=== PATIENT | male | born 1950 | race Caucasian/White ===

== ENCOUNTER → 2017-07-11 | Outpatient (CLI) | payer MEDICARE, MEDICAID ==
--- NOTE | 2017-07-11 15:39 | RADIOLOGY REPORT (SQ) ---
EXAM DESCRIPTION: MRI ABDOMEN COMBO COMPLETED DATE/TIME: 07/11/2017 10:44 am REASON FOR STUDY: LIVER CELL CARCINOMA C22.0 LIVER CELL CARCINOMA COMPARISON: None. TECHNIQUE: Multiplanar multisequence imaging performed without and with contrast including sagittal, axial and coronal T2, axial T1, axial gradient fat sat T1, axial, sagittal and coronal fat sat T1 po st contrast. CONTRAST TYPE AND DOSE: 20 mL Prohance. RENAL FUNCTION: GFR > 60. LIMITATIONS: Susceptibility artifact associated with retroperitoneum with the level of the S amount FINDINGS: LIVER: 2.6 x 2.4 x 1.9 cm lesion anterior segment (VIII) right lobe heterogeneously dark o n T2 with early arterial enhancement. SPLEEN: Normal size. No focal lesions. PANCREAS: No masses. No adjacent inflammation or peripancreatic fluid collections. Pancreatic duct no t dilated. GALLBLADDER: No masses. No stones. No gallbladder wall thickening or pericholecystic fluid. ADRENAL GLANDS: No significant masses or asymmetry. RIGHT KIDNEY AND URETER: Parapelvic cysts. No solid masses. No hydronephrosis. LEFT KIDNEY AND URETER: No masses. No hydronephrosis. AORTA AND VESSELS: No aneurysm. RETROPERITONEUM: No retroperitoneal adenopathy, hemorrhage or masses. BOWEL: No visualized masses. No inflammation. No significant dilatation. ABDOMINAL WALL AND PERITONEUM: No hernias. No free fluid. BONES: No acute or significant findings. OTHER: No other significant finding. IMPRESSION: Solitary mass in the right lobe of the liver which does not meet benign criteria. TECHNICAL DOCUMENTATION: JOB ID: [id number] [employer]- All Rights Reserved
== END ==
LOC: RAD 09:03
PROVIDERS: ATTEND Physician Assistant
DX: C22.0 Liver cell carcinoma (principal)
CPT/HCPCS: 82565; 74183; A9576

== ENCOUNTER → 2018-01-21 | Outpatient (CLI) | payer MEDICARE, MEDICAID ==
--- NOTE | 2018-01-22 11:07 | RADIOLOGY REPORT (SQ) ---
EXAM DESCRIPTION: MRI ABDOMEN COMBO COMPLETED DATE/TIME: 01/21/2018 11:27 am REASON FOR STUDY: HEPATOMEGALY, NOT ELSEWHERE CLASSIFIED R16.0 HEPATOMEGALY, NOT ELSEWHERE CLASSIFI ED COMPARISON: 07/11/2017 TECHNIQUE: Multiplanar multisequence imaging performed without and with contrast including sagittal, axial and coronal T2, axial T1, axial gradient fat sat T1, axial, sagittal and coronal fat sat T1 po st contrast. CONTRAST TYPE AND DOSE: 20 mL Prohance. RENAL FUNCTION: GFR > 60. LIMITATIONS: None. FINDINGS: LIVER: Persistent mass lesion the liver which is low signal on T1 low signal on T2 new wit h immediate hypervascularity and and early washout with rim enhancement. 2.5 cm. Similar in size to previous. . SPLEEN: Normal size. No focal lesions. PANCREAS: No masses. No adjacent inflammation or peripancreatic fluid collections. Pancreatic duct no t dilated. GALLBLADDER: No masses. No stones. No gallbladder wall thickening or pericholecystic fluid. ADRENAL GLANDS: No significant masses or asymmetry. RIGHT KIDNEY AND URETER: Peripelvic cysts. No hydronephrosis. LEFT KIDNEY AND URETER: No masses. No hydronephrosis. AORTA AND VESSELS: No aneurysm. No dissection. Renal arteries, SMA, celiac without stenosis. RETROPERITONEUM: No retroperitoneal adenopathy, hemorrhage or masses. BOWEL: No visualized masses. No inflammation. No significant dilatation. ABDOMINAL WALL AND PERITONEUM: No hernias. No free fluid. BONES: No acute or significant findings. OTHER: No other significant finding. IMPRESSION: Persistent suspicious mass in the right lobe of the liver measuring 2.5 cm. No change f rom previous. TECHNICAL DOCUMENTATION: JOB ID: [id number] [employer]- All Rights Reserved Reading location - IP/workstation name: [email or web address]
== END ==
LOC: RAD 10:07
PROVIDERS: ATTEND Physician Assistant
DX: R16.0 Hepatomegaly, not elsewhere classified (principal)
CPT/HCPCS: 82565; 74183; A9576

== ENCOUNTER 2018-09-18 19:24 | Emergency (ER) | payer MEDICARE, MEDICAID ==
--- NOTE | 2018-09-18 19:48 | ER Document Report ---
ED GI/ - General Chief Complaint: Nausea/Vomiting Stated Complaint: NAUSEA/VOMITING Time Seen by Provider: 09/18/18 19:41 Mode of Arrival: Stretcher Information source: Patient TRAVEL OUTSIDE OF THE [place] IN LAST 30 DAYS: No - HPI Patient complains to provider of: Vomiting Onset: Other - 2-3 days Timing/Duration: Persistent Quality of pain: No pain Associated symptoms: Nausea, Vomiting Exacerbated by: Denies Relieved by: Denies Similar symptoms previously: No Recently seen / treated by doctor: No Notes: 09/19/18 00:15 Patient is a 68-year-old male brought to the emergency room by EMS vomiting times 2-3 days, he denies any diarrhea, no abdominal pain, no fevers, no chest pain, he denies any other symptoms at present time - Related Data Allergies/Adverse Reactions: No Known Allergies Allergy (Unverified 09/18/18 21:53) Past Medical History - General Information source: Patient - Social History Smoking Status: Unknown if Ever Smoked Family History: Reviewed & Not Pertinent Review of Systems - Review of Systems Constitutional: No symptoms reported EENT: No symptoms reported Cardiovascular: No symptoms reported Respiratory: No symptoms reported Gastrointestinal: See HPI Genitourinary: No symptoms reported Male Genitourinary: No symptoms reported Musculoskeletal: No symptoms reported Skin: No symptoms reported Hematologic/Lymphatic: No symptoms reported Neurological/Psychological: No symptoms reported -: Yes All other systems reviewed and negative Physical Exam - Vital signs Vitals: Temp Pulse Resp BP Pulse Ox 98.1 F 71 18 197/86 H 99 09/18/18 19:30 09/18/18 19:30 09/18/18 19:30 09/18/18 19:30 09/18/18 19:30 Interpretation: Normal - General General appearance: Appears well, Alert - HEENT Head: Atraumatic, Other - Mid frontal indentation from previous surgery Eyes: Normal Conjunctiva: Normal Eyelashes: Normal Pupils: PERRL Mucous membranes: Normal Pharynx: Normal Neck: Normal - Respiratory Respiratory status: No respiratory distress Chest status: Nontender Breath sounds: Normal Chest palpation: Normal - Cardiovascular Rhythm: Regular Heart sounds: Normal auscultation Murmur: No - Abdominal Inspection: Normal Distension: No distension Bowel sounds: Normal Tenderness: Nontender Organomegaly: No organomegaly - Back Back: Normal, Nontender - Extremities General upper extremity: Normal inspection, Nontender, Normal color, Normal ROM , Normal temperature General lower extremity: Normal inspection, Nontender, Normal color, Normal ROM , Normal temperature, Normal weight bearing. No: Charlotte's sign - Neurological Neuro grossly intact: Yes Cognition: Normal Orientation: AAOx4 Danyelle Coma Scale Eye Opening: Spontaneous Danyelle Coma Scale Verbal: Confused - Slight confusion when asking some questions patient given an appropriate answer on initial exam Cambria Coma Scale Motor: Obeys Commands Cambria Coma Scale Total: 14 Speech: Normal Motor strength normal: LUE, RUE, LLE, RLE Sensory: Normal - Psychological Associated symptoms: Normal affect, Normal mood - Skin Skin Temperature: Warm Skin Moisture: Dry Skin Color: Normal Course - Re-evaluation Re-evalutation: 09/19/18 00:17 patient's roommate reported to the emergency room and reports that headache, patient initially denied any symptoms of the headache to me, however since he does appear slightly confused a CT head was ordered, this shows old changes of encephalomalacia from previous surgery which patient confirms is secondary to a previous head injury, patient is also noted to have elevated blood pressure, he states that he has been off of his valsartan hand for the past few weeks because he ran out and when he attempted to refill it was told that valsartan was recalled secondary to a carcinogen that was noted in this medication, I did an Internet search and valsartan was recalled back in April secondary to a carcinogen that was found as a compounding agent from 1 of the manufactures, however valsartan is otherwise available from other manufactures, patient was given a dose of antihypertensive medication in the emergency department and had significant improvement in his blood pressure, he is eating and drinking without any difficulty and lab findings are unremarkable, therefore patient will be discharged home with a prescription for valsartan and instructions for follow-up, advised to return if any symptoms worsen, patient acknowledges understanding and agreement with this plan - Vital Signs Vital signs: Temp Pulse Resp BP Pulse Ox 98.1 F 72 17 123/70 96 09/18/18 19:30 09/18/18 19:37 09/19/18 00:01 09/19/18 00:01 09/19/18 00:01 - Laboratory Result Diagrams: 09/18/18 20:39 09/18/18 20:39 Laboratory results interpreted by me: 09/18/18 09/18/18 09/18/18 20:39 20:39 20:39 Plt Count 142 L Seg Neutrophils % 82.1 H Lymphocytes % 11.1 L Potassium 3.5 L BUN 21 H Calcium 10.4 H Ammonia < 8.7 L Urine Urobilinogen 09/18/18 21:40 Plt Count Seg Neutrophils % Lymphocytes % Potassium BUN Calcium Ammonia Urine Urobilinogen 2.0 H - Diagnostic Test Radiology reviewed: Image reviewed, Reports reviewed Discharge - Discharge Clinical Impression: Nausea and vomiting Qualifiers: Vomiting type: unspecified Vomiting Intractability: non-intractable Qualified Code(s): R11.2 - Nausea with vomiting, unspecified Condition: Stable Disposition: HOME, SELF-CARE Instructions: Antinausea Medication ([facility]), Vomiting ([facility]), High Blood Pressure , Requiring Treatment ([facility]) Additional Instructions: Follow up with your primary care provider in one to 2 days. Return to the emergency room immediately if symptoms worsen or any additional concerns. Prescriptions: Valsartan [Diovan] 160 mg PO DAILY #30 tablet Referrals: UTE SIMMS PA-C [Primary Care Provider] - Follow up as needed
[2018-09-18 20:54] LABS: ABSOLUTE BASOPHILS # (AUTO) 0.1 10^3/uL (0.0-0.2); ABSOLUTE LYMPHOCYTES (AUTO) 0.9 10^3/uL (0.5-4.7); ABSOLUTE MONOCYTES (AUTO) 0.5 10^3/uL (0.1-1.4); ABSOLUTE NEUT (AUTO) 6.8 10^3/uL (1.7-8.2); BASOPHILS % (AUTO) 0.9 % (0-2); EOSINOPHILS % (AUTO) 0.3 % (0-6); HEMATOCRIT 43.1 % (37.9-51.0); LYMPHOCYTES % (AUTO) 11.1 % (13-45); MEAN CORPUSCULAR HEMOGLOBIN 31.5 pg (27.0-33.4); MEAN CORPUSCULAR HGB CONC 34.9 g/dL (32.0-36.0); MEAN CORPUSCULAR VOLUME 90 fl (80-97); MONOCYTES % (AUTO) 5.6 % (3-13); PLATELET COUNT 142 10^3/uL (150-450); RED BLOOD COUNT 4.77 10^6/uL (4.35-5.55); RED CELL DISTRIBUTION WIDTH 13.4 % (11.5-14.0); SEGMENTED NEUTROPHILS % (AUTO) 82.1 % (42-78); TOTAL CELLS COUNTED % (AUTO) 100 %; WHITE BLOOD COUNT 8.3 10^3/uL (4.0-10.5)
[2018-09-18] MEDS ORDERED: METOPROLOL TARTRATE PF/INJ 5 MG/5 ML SDV IV ONE (21:49)
[2018-09-18 21:57] LABS: APPEARANCE,URINE CLEAR; BILIRUBIN,URINE NEGATIVE (NEGATIVE); COLOR,URINE YELLOW; GLUCOSE, URINE NEGATIVE (NEGATIVE); KETONES,URINE NEGATIVE (NEGATIVE); LEUKOCYTE ESTERASE,URINE NEGATIVE (NEGATIVE); NITRITE,URINE NEGATIVE (NEGATIVE); PROTEIN,URINE NEGATIVE (NEGATIVE); URINE SPECIFIC GRAVITY 1.012
[2018-09-18 22:07] LABS: ALANINE AMINOTRANSFERASE 21 U/L (21-72); ALBUMIN 4.2 g/dL (3.5-5.0); ALKALINE PHOSPHATASE 71 U/L (38-126); ANION GAP 14 (5-19); ASPARTATE AMINO TRANSFERASE 37 U/L (17-59); BILIRUBIN,DIRECT 0.3 mg/dL (0.0-0.4); BILIRUBIN,TOTAL 0.6 mg/dL (0.2-1.3); BLOOD UREA NITROGEN 21 mg/dL (7-20); CALCIUM 10.4 mg/dL (8.4-10.2); CARBON DIOXIDE 30 mmol/L (22-30); CHLORIDE 98 mmol/L (98-107); GLUCOSE 101 mg/dL (75-110); LIPASE 67.4 U/L (23-300); POTASSIUM 3.5 mmol/L (3.6-5.0); SODIUM 141.5 mmol/L (137-145); TOTAL PROTEIN 7.1 g/dL (6.3-8.2)
--- NOTE | 2018-09-18 22:46 | RADIOLOGY REPORT (SQ) ---
EXAM DESCRIPTION: CT HEAD WITHOUT IV CONTRAST COMPLETED DATE/TME: 09/18/2018 21:49 CLINICAL HISTORY: 68 years, Male, ams COMPARISON: None. TECHNIQUE: 201 Images stored on PACS. All CT scanners at this facility use dose modulation, iterative reconstruction, and/or weight based dosing when appropriate to reduce radiation dose to as low as reasonably achievable (ALARA). [facility]: Dose Right [facility]: CareDose [facility]: Dose Right [facility]: Teradose 4D [facility]: Pairy LIMITATIONS: None. FINDINGS: The globes are intact. The paranasal sinuses and mastoid air cells are unremarkable. No displaced or depressed skull fracture. Craniotomy defect in the bifrontal regions. Deformity of the frontal bone near the midline with internal soft tissue density which possibly communicates with the adjacent right frontal sinus could be postoperative however correlation with any prior exams is recommended. Negative for intra or extra-axial hemorrhage. CT is limited for evaluation of acute infarct. No CT evidence for large or territorial acute infarct. Diffuse atrophy. Diminished attenuation in the left frontal region which likely relates to postoperative changes with underlying encephalomalacia.. IMPRESSION: Postsurgical changes, as above. Correlation with any prior/outside exams is recommended. What is likely an area of postoperative change/encephalomalacia in the left frontal region. Mild diffuse atrophy. TECHNICAL DOCUMENTATION: Quality ID # [id number]: Final reports with documentation of one or more dose reduction techniques (e.g., Automated exposure control, adjustment of the mA and/or kV according to patient size, use of iterative reconstruction technique) 2010 [employer]- All Rights Reserved
[2018-09-18] MEDS ORDERED: CLONIDINE HCL 0.2 MG TABLET PO ONE (22:53)
[2018-09-19 00:08] VITALS: BP 123/70
== END 2018-09-19 00:27 | disposition home or self-care (01) ==
LOC: ER 19:24
DX: R11.2 Nausea with vomiting, unspecified (principal); I10 Essential (primary) hypertension; T46.5X6A Underdosing of other antihypertensive drugs, initial encounter; Z91.128 Patient's intentional underdosing of medication regimen for other reason; Z91.14 Patient's other noncompliance with medication regimen; R51 Headache; G93.89 Other specified disorders of brain
CPT/HCPCS: 99284; 96374; 36415; 87086; 82140; 83690; 85025; 80053; 81001; 70450; A9270; J3490

== ENCOUNTER 2019-08-07 11:39 | Outpatient (CLI) | payer MEDICARE, MEDICAID ==
[~2019-08-07 11:39] MED LIST: NIVOLUMAB 240 MG in NORMAL SALINE 50 ML IV PRN; NORMAL SALINE 250 ML IV PRN; ZOLEDRONIC ACID 4 MG/100 ML RTU IV PRN
[2019-08-07 12:02] VITALS: BP 156/70
[2019-08-07] MEDS ORDERED: ZOLEDRONIC ACID IV PRN (12:41)
[2019-08-07] MEDS ORDERED: MANNITOL IV PRN (12:41)
[2019-08-07] MEDS ORDERED: WATER IV PRN (12:41)
== END 2019-08-07 13:47 | disposition home or self-care (01) ==
LOC: II 11:39 → 5TH 12:11 → II 13:47
PROVIDERS: ATTEND Internal Medicine Hematology & Oncology
PROC: 3E0330M Introduction of Antineoplastic, Monoclonal Antibody, into Peripheral Vein, Percutaneous Approach (ICD-10-PCS; principal; 2019-08-07)
PROC: 3E033GC Introduction of Other Therapeutic Substance into Peripheral Vein, Percutaneous Approach (ICD-10-PCS; 2019-08-07)
DX: Z51.11 Encounter for antineoplastic chemotherapy (principal); C22.0 Liver cell carcinoma
CPT/HCPCS: 96413; 96367; J3489; J9299

== ENCOUNTER 2019-08-21 10:15 | Outpatient (CLI) | payer MEDICARE, MEDICAID ==
[~2019-08-21 10:15] MED LIST changes: -ZOLEDRONIC ACID 4 MG/100 ML RTU IV PRN
[2019-08-21 10:40] VITALS: BP 139/76
== END 2019-08-21 11:41 | disposition home or self-care (01) ==
LOC: II 10:15 → 5TH 11:06 → II 11:41
PROVIDERS: ATTEND Internal Medicine Hematology & Oncology
PROC: 3E0330M Introduction of Antineoplastic, Monoclonal Antibody, into Peripheral Vein, Percutaneous Approach (ICD-10-PCS; principal; 2019-08-21)
DX: Z51.11 Encounter for antineoplastic chemotherapy (principal); C22.0 Liver cell carcinoma
CPT/HCPCS: 96413; J9299

== ENCOUNTER 2019-09-04 14:31 | Outpatient (CLI) | payer MEDICARE, MEDICAID ==
[~2019-09-04 14:31] MED LIST changes: +ZOLEDRONIC ACID/MANNITOL/WATER 4 MG/100 ML INFUS..BTL IV PRN
[2019-09-04 14:55] VITALS: BP 146/78
== END 2019-09-04 15:45 | disposition home or self-care (01) ==
LOC: II 14:31 → 5TH 14:31 → II 15:45
PROVIDERS: ATTEND Internal Medicine Hematology & Oncology
PROC: 3E0330M Introduction of Antineoplastic, Monoclonal Antibody, into Peripheral Vein, Percutaneous Approach (ICD-10-PCS; principal; 2019-09-04)
PROC: 3E033GC Introduction of Other Therapeutic Substance into Peripheral Vein, Percutaneous Approach (ICD-10-PCS; 2019-09-04)
DX: Z51.11 Encounter for antineoplastic chemotherapy (principal); C22.0 Liver cell carcinoma; Z79.51 Long term (current) use of inhaled steroids
CPT/HCPCS: 96413; 96367; J3489; J9299

== ENCOUNTER → 2019-09-04 | Outpatient (CLI) | payer MEDICARE, MEDICAID ==
--- NOTE | 2019-09-04 12:27 | RADIOLOGY REPORT (SQ) ---
EXAM DESCRIPTION: NM WHOLE BODY BONE SCAN COMPLETED DATE/TIME: 09/04/2019 12:05 pm REASON FOR STUDY: LIVER CELL CARCINOMA C22.0 LIVER CELL CARCINOMA COMPARISON: No available imaging studies for comparison. RADIONUCLIDE AND DOSE: 21.5 millicuries Tc99m MDP. The route of agent administration: Intravenous. ADDITIONAL DRUGS AND DOSES: None. TECHNIQUE: Routine delayed images at 3 hour post radionuclide injection acquired of the bony skeleto n including anterior and posterior whole-body projections and additional focused images as needed. LIMITATIONS: None. FINDINGS: BONES: There is uptake in a right posterior rib. This appears to be in the 9th rib. It i s focal and most likely posttraumatic. Correlation with plain films is recommended. There is less i ntense uptake in a right anterior ribs this uptake is more linear in configuration and metastatic dis ease cannot be excluded. There is increased uptake in the lumbar spine most likely degenerative christina elation with plain films is recommended. KIDNEYS: Symmetric excretion without obstruction. OTHER: No other significant finding. IMPRESSION: Areas of abnormal uptake in a right anterior rib, a right posterior ribs and at L5. The uptake in the right anterior rib is suspicious for metastatic disease correlation with plain films i s recommended. Other changes are most likely degenerative and posttraumatic. COMMENT: Quality measure 147: Current bone scan is compared with any available plain radiographs, p rior bone scans, and CT/MRI. TECHNICAL DOCUMENTATION: JOB ID: [id number]- All Rights Reserved Reading location - IP/workstation name: [email or web address]
== END ==
LOC: RAD 08:02
PROVIDERS: ATTEND Nurse Practitioner Family
DX: C22.0 Liver cell carcinoma (principal); C79.51 Secondary malignant neoplasm of bone
CPT/HCPCS: 78306; A9561; Q9969

== ENCOUNTER 2019-09-18 11:31 | Outpatient (CLI) | payer MEDICARE, MEDICAID ==
[~2019-09-18 11:31] MED LIST changes: -ZOLEDRONIC ACID/MANNITOL/WATER 4 MG/100 ML INFUS..BTL IV PRN
[2019-09-18 11:47] VITALS: BP 124/73
== END 2019-09-18 13:00 | disposition home or self-care (01) ==
LOC: II 11:31 → 5TH 11:39 → II 13:00
PROVIDERS: ATTEND Internal Medicine Hematology & Oncology
PROC: 3E0330M Introduction of Antineoplastic, Monoclonal Antibody, into Peripheral Vein, Percutaneous Approach (ICD-10-PCS; principal; 2019-09-18)
DX: Z51.11 Encounter for antineoplastic chemotherapy (principal); C22.0 Liver cell carcinoma
CPT/HCPCS: 96413; J9299

== ENCOUNTER 2019-10-02 11:48 | Outpatient (CLI) | payer MEDICARE, MEDICAID ==
[~2019-10-02 11:48] MED LIST changes: +MANNITOL IV PRN; +ZOLEDRONIC ACID IV PRN; +[UNRECOGNIZED DRUG - OTHER] IV PRN
[2019-10-02 13:52] VITALS: BP 108/73
== END 2019-10-02 13:20 | disposition home or self-care (01) ==
LOC: II 11:48 → 5TH 12:05 → II 13:20
PROVIDERS: ATTEND Internal Medicine Hematology & Oncology
DX: Z51.11 Encounter for antineoplastic chemotherapy (principal); C22.0 Liver cell carcinoma
CPT/HCPCS: 96413; 96367; J3489; J9299

== ENCOUNTER 2019-10-23 11:05 | Outpatient (CLI) | payer MEDICARE, MEDICAID ==
[~2019-10-23 11:05] MED LIST changes: -MANNITOL IV PRN; -ZOLEDRONIC ACID IV PRN; -[UNRECOGNIZED DRUG - OTHER] IV PRN
[2019-10-23 11:50] VITALS: BP 135/68
== END 2019-10-23 12:43 | disposition home or self-care (01) ==
LOC: II 11:05 → 5TH 11:07 → II 12:43
PROVIDERS: ATTEND Internal Medicine Hematology & Oncology
DX: Z51.11 Encounter for antineoplastic chemotherapy (principal); C22.0 Liver cell carcinoma
CPT/HCPCS: 96413; J9299

== ENCOUNTER 2019-11-06 12:23 | Outpatient (CLI) | payer MEDICARE, MEDICAID ==
[~2019-11-06 12:23] MED LIST changes: +MANNITOL IV PRN; +WATER IV PRN; +ZOLEDRONIC ACID 4 MG/100 ML RTU IV PRN; +ZOLEDRONIC ACID IV PRN
[2019-11-06 12:34] VITALS: BP 130/74
== END 2019-11-06 14:54 | disposition home or self-care (01) ==
LOC: II 12:23 → 5TH 12:29 → II 14:54
PROVIDERS: ATTEND Internal Medicine Hematology & Oncology
DX: Z51.11 Encounter for antineoplastic chemotherapy (principal); C22.0 Liver cell carcinoma
CPT/HCPCS: 96413; 96367; J3489; J9299

== ENCOUNTER → 2019-12-25 | Outpatient (CLI) | payer MEDICARE, MEDICAID ==
--- NOTE | 2019-12-25 13:14 | RADIOLOGY REPORT (SQ) ---
EXAM DESCRIPTION: NM WHOLE BODY BONE SCAN COMPLETED DATE/TIME: 12/25/2019 12:08 pm REASON FOR STUDY: LIVER CELL CARCINOMA (C22.0), BONE METS (C79.51) C22.0 LIVER CELL CARCINOMA COMPARISON: 09/04/2019 RADIONUCLIDE AND DOSE: 20 millicuries Tc99m HDP. The route of agent administration: Intravenous. ADDITIONAL DRUGS AND DOSES: None. TECHNIQUE: Routine delayed images at 3 hours post radionuclide injection acquired of the bony skelet on including anterior and posterior whole-body projections and additional focused images as needed. LIMITATIONS: None. FINDINGS: BONES: There is focal uptake in the right anterior rib. Right posterior rib, and at the l umbosacral junction. There are no new areas of abnormal uptake. KIDNEYS: Symmetric excretion without obstruction. OTHER: No other significant finding. IMPRESSION: Stable bone scan with abnormal areas of uptake as described. Cannot exclude metastatic disease. COMMENT: Quality measure 147: Current bone scan is compared with any available plain radiographs, p rior bone scans, and CT/MRI. TECHNICAL DOCUMENTATION: JOB ID: [id number] 2010 [employer]- All Rights Reserved Reading location - IP/workstation name: [email or web address]
== END ==
LOC: RAD 08:09
PROVIDERS: ATTEND Nurse Practitioner Family
DX: C22.0 Liver cell carcinoma (principal); C79.51 Secondary malignant neoplasm of bone
CPT/HCPCS: 78306; A9561; Q9969

== ENCOUNTER → 2020-04-08 | Outpatient (CLI) | payer MEDICARE, MEDICAID ==
--- NOTE | 2020-04-08 12:59 | RADIOLOGY REPORT (SQ) ---
EXAM DESCRIPTION: VENOUS UNILATERAL LOWER IMAGES COMPLETED DATE/TIME: 04/08/2020 11:48 am REASON FOR STUDY: LLE PAIN M79.662 PAIN IN LEFT LOWER LEG COMPARISON: None. TECHNIQUE: Dynamic and static vang scale and color images acquired of the left leg venous system. Se lected spectral images acquired with additional compression and augmentation maneuvers. The contralat eral common femoral vein and saphenofemoral junction were also imaged. Images stored on PACS. LIMITATIONS: None. FINDINGS: COMMON FEMORAL: Normal phasicity, compression and augmentation. No visualized echogenic ma terial on vang scale. No defects on color images. FEMORAL: Normal compression and augmentation. No visualized echogenic material on vang scale. No defe cts on color images. POPLITEAL: Normal compression, augmentation. No visualized echogenic material on vang scale. No defec ts on color images. CALF VESSELS: Normal compression, augmentation. No visualized echogenic material on vang scale. No de fects on color images. GSV and SSV: Normal compression, augmentation. No visualized echogenic material on vang scale. No def ects on color images. ANY DEEP VENOUS INSUFFICIENCY: Not evaluated. ANY EVIDENCE OF POPLITEAL CYST: No. OTHER: No other significant finding. CONTRALATERAL COMMON FEMORAL VEIN AND SAPHENOFEMORAL JUNCTION: Normal phasicity, compression and augmentation. No visualized echogenic material on vang scale. No de fects on color images. IMPRESSION: NO EVIDENCE DVT OR SVT IN THE LEFT LEG. TECHNICAL DOCUMENTATION: JOB ID: [id number] 2010 [employer]- All Rights Reserved Reading location - IP/workstation name: [email or web address]
== END ==
LOC: SP 07:55
PROVIDERS: ATTEND Physician Assistant
DX: M79.662 Pain in left lower leg (principal)
CPT/HCPCS: 93971

== ENCOUNTER 2020-04-12 10:36 | Emergency (ER) | payer MEDICARE, MEDICAID ==
[2020-04-12 11:45] LABS: ABSOLUTE BASOPHILS # (AUTO) 0.1 10^3/uL (0.0-0.2); ABSOLUTE EOSINOPHILS # (AUTO) 0.3 10^3/uL (0.0-0.6); ABSOLUTE LYMPHOCYTES (AUTO) 0.6 10^3/uL (0.5-4.7); ABSOLUTE MONOCYTES (AUTO) 0.3 10^3/uL (0.1-1.4); ABSOLUTE NEUT (AUTO) 4.7 10^3/uL (1.7-8.2); BASOPHILS % (AUTO) 2.2 % (0-2); EOSINOPHILS % (AUTO) 4.6 % (0-6); HEMATOCRIT 32.3 % (37.9-51.0); LYMPHOCYTES % (AUTO) 9.5 % (13-45); MEAN CORPUSCULAR HEMOGLOBIN 31.2 pg (27.0-33.4); MEAN CORPUSCULAR VOLUME 92 fl (80-97); MONOCYTES % (AUTO) 5.2 % (3-13); PLATELET COUNT 320 10^3/uL (150-450); RED BLOOD COUNT 3.51 10^6/uL (4.35-5.55); RED CELL DISTRIBUTION WIDTH 15.5 % (11.5-14.0); SEGMENTED NEUTROPHILS % (AUTO) 78.5 % (42-78); TOTAL CELLS COUNTED % (AUTO) 100 %
[2020-04-12 12:02] LABS: ALBUMIN 3.8 g/dL (3.5-5.0); ALKALINE PHOSPHATASE 126 U/L (38-126); ANION GAP 8 (5-19); ASPARTATE AMINO TRANSFERASE 131 U/L (17-59); BILIRUBIN,DIRECT 0.2 mg/dL (0.0-0.4); BILIRUBIN,TOTAL 0.7 mg/dL (0.2-1.3); BLOOD UREA NITROGEN 17 mg/dL (7-20); CALCIUM 9.6 mg/dL (8.4-10.2); CARBON DIOXIDE 23 mmol/L (22-30); CHLORIDE 108 mmol/L (98-107); GLUCOSE 93 mg/dL (75-110); POTASSIUM 4.4 mmol/L (3.6-5.0)
--- NOTE | 2020-04-12 13:03 | RADIOLOGY REPORT (SQ) ---
EXAM DESCRIPTION: CHEST 2 VIEWS IMAGES COMPLETED DATE/TIME: 04/12/2020 12:52 pm REASON FOR STUDY: Right-sided chest pain COMPARISON: None. EXAM PARAMETERS: NUMBER OF VIEWS: two views TECHNIQUE: Digital Frontal and Lateral radiographic views of the chest acquired. RADIATION DOSE: NA LIMITATIONS: none FINDINGS: LUNGS AND PLEURA: The lungs are hyperinflated and hyperlucent with mild flattening of the hemidiaphragm. No airspace consolidations or pleural effusions noted. No pneumothorax. MEDIASTINUM AND HILAR STRUCTURES: No masses or contour abnormalities. HEART AND VASCULAR STRUCTURES: Heart normal size. No evidence for failure. BONES: No acute findings. HARDWARE: None in the chest. OTHER: No other significant finding. IMPRESSION: Chronic findings most consistent with COPD. No acute findings of a cardiopulmonary proc ess. TECHNICAL DOCUMENTATION: JOB ID: [id number] 2010 [employer]- All Rights Reserved Reading location - IP/workstation name: [email or web address]
[2020-04-12] MEDS ORDERED: IPRATROPIUM/ALBUTEROL 0.5-2.5 MG/3 ML AMPUL NEB ONE (14:23)
[2020-04-12] MEDS ORDERED: TRAMADOL HCL 50 MG TABLET PO ONE (14:28)
--- NOTE | 2020-04-12 14:30 | ER Document Report ---
ED General - General Chief Complaint: Rib Pain Stated Complaint: FLANK PAIN Time Seen by Provider: 04/12/20 12:08 Primary Care Provider: UTE SIMMS PA-C [Primary Care Provider] - Follow up as needed Notes: 69-year-old man presents to the emergency department with a history of liver cancer and now complaining of right sided chest pain. States that he began having a severe sharp pain in his right chest this morning. The pain is worse when he takes a deep breath. He denies acute shortness of breath and no cough or fever. He has a history of COPD, peripheral vascular disease, renal insufficiency. TRAVEL OUTSIDE OF THE [place] IN LAST 30 DAYS: No - Related Data Allergies/Adverse Reactions: No Known Allergies Allergy (Unverified 09/18/18 21:53) Past Medical History - Social History Smoking Status: Current Every Day Smoker Family History: Reviewed & Not Pertinent - Past Medical History Cardiac Medical History: Reports: Hx Hypertension Renal/ Medical History: Denies: Hx Peritoneal Dialysis Review of Systems - Review of Systems Notes: Constitutional: Negative for fever. HENT: Negative for sore throat. Eyes: Negative for visual changes. Cardiovascular: Negative for chest pain. Chest: + Right rib cage pain Respiratory: Negative for shortness of breath. Gastrointestinal: Negative for abdominal pain, vomiting or diarrhea. Genitourinary: Negative for dysuria. Musculoskeletal: Negative for back pain. Skin: Negative for rash. Neurological: Negative for headaches, weakness or numbness. 10 point ROS negative except as marked above and in HPI. Physical Exam - Vital signs Vitals: Temp Pulse Resp BP Pulse Ox 98.7 F 91 20 130/64 H 94 04/12/20 11:28 04/12/20 11:28 04/12/20 11:28 04/12/20 11:28 04/12/20 11:28 - Notes Notes: PHYSICAL EXAMINATION: Physical Exam: General: Chronically ill-appearing 69-year-old man in no acute distress HEENT: NC/AT, pupils equal round and reactive to light, MM moist,nares clear, oropharynx clear, airway patent Neck: supple, no adenopathy, no masses. Good range of motion Lungs: clear, no wheezing, no rales no rhonchi CVS: Regular rate and rhythm no murmur gallop or rub Chest: Patient is in the lateral chest wall to touch, no rash, no crepitus Abdomen: Soft, active, nontender, no masses, no hepatosplenomegaly Ext: No edema, clubbing or cyanosis. Neuro: Alert and responsive, moving all 4 extremities on command, cranial nerves intact, no focal findings Skin: Intact no open lesions, no rash PSYCH: Normal mood, normal affect. Course - Vital Signs Vital signs: Temp Pulse Resp BP Pulse Ox 98.3 F 91 17 143/75 H 96 04/12/20 16:21 04/12/20 11:28 04/12/20 16:21 04/12/20 16:21 04/12/20 16:21 - Laboratory Result Diagrams: 04/12/20 10:05 04/12/20 10:05 Laboratory results interpreted by me: 04/12/20 04/12/20 04/12/20 10:05 10:05 14:18 RBC 3.51 L Hgb 11.0 L Hct 32.3 L RDW 15.5 H Lymph % (Auto) 9.5 L Baso % (Auto) 2.2 H Seg Neutrophils % 78.5 H Chloride 108 H Creatinine 2.48 H Est GFR ( Amer) 32 L Est GFR (MDRD) Non-Af 26 L AST 131 H Urine Protein 30 H Urine Blood MODERATE H - Diagnostic Test Radiology reviewed: Image reviewed, Reports reviewed Radiology results interpreted by me: 04/12/20 14:33 Chest x-ray: No acute infiltrates, findings compatible with COPD. No obvious rib fractures seen. 04/12/20 16:27 CT chest noncontrast: 2.[address] with cortical thickening noted at the ninth rib. Findings suspicious for metastatic disease. Discharge - Discharge Clinical Impression: Right-sided chest wall pain, Mass of chest wall, right Condition: Good Disposition: HOME, SELF-CARE Additional Instructions: Your seen in the emergency department today with right rib cage pain. CT scan reveals an area in the right rib cage which may represent metastatic disease. Please contact your oncologist on Tuesday regarding this area of evaluation and follow-up as per their direction. Use the medication for pain as prescribed, you may supplement Tylenol or ibupro fen as needed. If your symptoms are worsening or if you have other concerns you may return to the emergency department for further evaluation and treatment. HOME CARE INSTRUCTIONS & INFORMATION: Thank you for choosing us for your medical needs. We hope you're satisfied with the care you received. After you leave, you must properly care for your problem and, at the same time, observe its progress. Any condition can change. Some illnesses can change rapidly over hours or days. If your condition worsens, return to the Emergency Department or see your physician promptly. ABOUT YOUR X-RAYS AND EKG'S: If you had an EKG or X-rays taken, they have been read by the Emergency Physician. The X-rays and EKG's will also be read by a Radiologist or Aerial Erector within 24 hours. If discrepancies are noted, you will be notified by telephone. Please be certain the ED has a correct telephone number & address where you can be reached. Also, realize that some fractures or abnormalities do not show up on initial X-rays. If your symptoms continue, see your physician. ABOUT YOUR LABORATORY TEST: If you had laboratory tests, the results have been reviewed by the Emergency Physician. Some test results (for example cultures) may not be available for several days. You will be contacted if any test result shows you need additional treatment. Please be certain the ED has a correct telephone number and address where you can be reached. ABOUT YOUR MEDICATIONS: You will receive instructions on how to take your medicine on the prescription label you receive. Additional information may be provided by the Pharmacy. If you have questions afterwards, call the ED for clarification or further instructions. Some prescribed medications may cause drowsiness. Do not perform tasks such as driving a car or operating machinery without consulting your Pharmacist. If you feel you need a refill of pain medication, your condition will need re-evaluation. Please do not call for a refill of any medication. ABOUT YOUR SIGNATURE: Signature of this document acknowledges to followin. Understanding that you received emergency treatment and that you may be released before al medical problems are known or treated. Please be certain the ED has a correct phone number & address where you can be reached. 2. Acknowledgement that you will arrange for follow-up care as recommended. 3. Authorization for the Emergency Physician to provide information to your follow-up Physician in order to maximize your care. AT ANY TIME, IF YOUR SYMPTOMS CHANGE SIGNIFICANTLY OR WORSEN OR YOU DEVELOP NEW SYMPTOMS, RETURN TO THE EMERGENCY DEPARTMENT IMMEDIATELY FOR RE-EVALUATION. OUR GOAL IS TO PROVIDE EXCELLENT MEDICAL CARE! WE HOPE THAT WE HAVE MET YOUR EXPECTATIONS DURING YOUR EMERGENCY DEPARTMENT VISIT AND THAT YOU FEEL YOU HAVE RECEIVED EXCELLENT CARE! Prescriptions: Hydrocodone/Acetaminophen [Kn[place] 5-325 mg Tablet] 1 tab PO Q6 PRN #10 tablet PRN Reason: Referrals: UTE SIMMS PA-C [Primary Care Provider] - Follow up as needed
[2020-04-12 14:32] LABS: APPEARANCE,URINE CLEAR; BILIRUBIN,URINE NEGATIVE (NEGATIVE); COLOR,URINE STRAW; GLUCOSE, URINE NEGATIVE (NEGATIVE); KETONES,URINE NEGATIVE (NEGATIVE); LEUKOCYTE ESTERASE,URINE NEGATIVE (NEGATIVE); NITRITE,URINE NEGATIVE (NEGATIVE); PROTEIN,URINE 30 mg/dL (NEGATIVE); URINE SPECIFIC GRAVITY 1.005; UROBILINOGEN,URINE NEGATIVE mg/dL (<2.0)
--- NOTE | 2020-04-12 15:23 | RADIOLOGY REPORT (SQ) ---
EXAM DESCRIPTION: CT CHEST WITHOUT IMAGES COMPLETED DATE/TIME: 04/12/2020 3:06 pm REASON FOR STUDY: chest pain COMPARISON: None. TECHNIQUE: CT scan performed of the chest without intravenous contrast. Images reviewed with lung, soft tissue and bone windows. Reconstructed coronal and sagittal MPR images reviewed. All images st ored on PACS. All CT scanners at this facility use dose modulation, iterative reconstruction, and/or weight based d osing when appropriate to reduce radiation dose to as low as reasonably achievable (ALARA). [facility]: Dose Right [facility]: CareDose [facility]: Dose Right [facility]: Teradose 4D [facility]: Smart [employer] RADIATION DOSE: CT Rad equipment meets quality standard of care and radiation dose reduction techniq ues were employed. CTDIvol: 5.0 mGy. DLP: 198 mGy-cm. mGy. LIMITATIONS: No technical limitations. FINDINGS: LUNGS AND PLEURA: Moderate centrilobular emphysematous changes, particular within the uppe r lungs. No pleural effusions or pneumothorax. No significant pulmonary nodules or masses. HILAR AND MEDIASTINAL STRUCTURES: No identified masses or abnormal nodes. No obvious aneurysm. HEART AND VASCULAR STRUCTURES: No aneurysm. Diffuse aortic calcifications are present. Scattered co ronary artery calcifications are also present. UPPER ABDOMEN: No significant findings. Limited exam. THYROID AND OTHER SOFT TISSUES: No masses. No adenopathy. BONES: There is a subtle cortical thickening of the posterior aspect of the right 9th rib. HARDWARE: None in the chest. OTHER: 2.5 cm soft tissue density just deep to the posterior right 9th rib. This is incompletely ramakrishna luated on this exam. IMPRESSION: 1. 2.5 cm soft tissue density just deep to the posterior right 9th rib with some cortic al thickening of the rib at that location. Recommend correlation with patient's site of pain. This is incompletely evaluated on this noncontrast examination. The differential diagnosis includes heali ng trauma and associated hematoma, benign and malignant soft tissue or bone neoplasm. 2. Moderate centrilobular emphysematous changes TECHNICAL DOCUMENTATION: JOB ID: [id number] Quality ID # [id number]: Final reports with documentation of one or more dose reduction techniques (e.g., Au tomated exposure control, adjustment of the mA and/or kV according to patient size, use of iterative reconstruction technique) 2010 [employer]- All Rights Reserved Reading location - IP/workstation name: [email or web address]
[2020-04-12 16:31] VITALS: BP 143/75
== END 2020-04-12 17:02 | disposition home or self-care (01) ==
LOC: ER 10:36
DX: R07.89 Other chest pain (principal); R22.2 Localized swelling, mass and lump, trunk; R07.81 Pleurodynia; C22.8 Malignant neoplasm of liver, primary, unspecified as to type; J44.9 Chronic obstructive pulmonary disease, unspecified; F17.200 Nicotine dependence, unspecified, uncomplicated; I10 Essential (primary) hypertension
CPT/HCPCS: 94640; 99284; 36415; 83690; 85025; 80053; 81001; 71046; 71250; A9270 ×2; J7620

== ENCOUNTER 2020-04-12 22:52 | Emergency (ER) | payer MEDICARE, MEDICAID ==
[2020-04-13] MEDS ORDERED: ONDANSETRON HCL INJ/PF 4 MG/2 ML SDV IV ONE (00:01)
[2020-04-13] MEDS ORDERED: ONDANSETRON HCL INJ/PF 4 MG/2 ML SDV ONE (00:02)
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
[2020-04-13] MEDS ORDERED: LIDOCAINE 5% (700 MG) TRANSDERMAL ADH..PATCH TP ONE (00:14)
[2020-04-13] MEDS ORDERED: BUPIVACAINE HCL 0.5 % INJ/PF 30 ML SDV INJ ONE (00:19)
[2020-04-13] MEDS ORDERED: DEXAMETHASONE SOD PHOS INJ 10 MG/1 ML VIAL INJ ONE (00:22)
[2020-04-13] MEDS ORDERED: KETOROLAC TROMETHAMINE INJ/PF 30 MG/1 ML SDV IV ONE (01:21)
--- NOTE | 2020-04-13 01:26 | RADIOLOGY REPORT (SQ) ---
CLINICAL INDICATION: cough. TECHNIQUE: A single portable AP view was obtained of the chest at 0109 hours. COMPARISON: April 12, 2020. FINDINGS: The cardiomediastinal silhouette is normal. The lungs are grossly clear. No evidence of effusion or pneumothorax. Chronic parenchymal lung change. No adverse change. IMPRESSION: No evidence of active intrathoracic disease.
[2020-04-13] MEDS ORDERED: TRAMADOL HCL 50 MG TABLET PO ONE (01:41)
[2020-04-13 02:07] VITALS: BP 142/76
== END 2020-04-13 02:47 | disposition home or self-care (01) ==
LOC: ER 22:52
DX: G89.3 Neoplasm related pain (acute) (chronic) (principal); R07.81 Pleurodynia; M25.551 Pain in right hip; C79.51 Secondary malignant neoplasm of bone; C22.8 Malignant neoplasm of liver, primary, unspecified as to type; I10 Essential (primary) hypertension; R10.811 Right upper quadrant abdominal tenderness; R53.1 Weakness; R63.4 Abnormal weight loss; R56.9 Unspecified convulsions; Z79.899 Other long term (current) drug therapy; Z79.1 Long term (current) use of non-steroidal anti-inflammatories (NSAID); Z87.891 Personal history of nicotine dependence
CPT/HCPCS: 99285; 96374; 96375; 71045; J3490; J1885; A9270 ×2; J2405; J1100; 36415; 71046; 71250; 80053; 81001; 83690; 85025; 94640; 99284; J7620

== ENCOUNTER 2020-04-18 10:16 | Emergency (ER) | payer MEDICARE, MEDICAID ==
[2020-04-18] MEDS ORDERED: NORMAL SALINE 1000 ML 1,000 ML IV ONE (12:12)
[2020-04-18] MEDS ORDERED: MORPHINE SULFATE 10 MG/ML INJ IV ONE (12:12)
--- NOTE | 2020-04-18 12:14 | ER Document Report ---
ED Medical Screen (RME) - General Chief Complaint: Rib Pain Stated Complaint: RIGHT RIB PAIN Time Seen by Provider: 04/18/20 12:05 Primary Care Provider: TAMEKA DAVIS FNP-C [Primary Care Provider] - Follow up as needed Notes: Patient is a 69-year-old male who presents to the emergency department with a chief complaint of abdominal pain and right-sided rib pain. Patient has a history of liver cancer that has metastasized to his right ribs and right hip. Patient is followed by Dr. Cruz. Exam: Tender right lateral abdomen. Exam limited due to patient in sitting position in triage. I have greeted and performed a rapid initial assessment of this patient. A comprehensive ED assessment and evaluation of the patient, analysis of test results and completion of medical decision making process will be conducted by an additional ED providers. TRAVEL OUTSIDE OF THE U[place] IN LAST 30 DAYS: No - Related Data Allergies/Adverse Reactions: No Known Allergies Allergy (Unverified 09/18/18 21:53) Home Medications: levothyroxine, simvastatin, spiriva, plavix, lidocaine/morphine topical Past Medical History - Social History Frequency of alcohol use: None Drug Abuse: None - Past Medical History Cardiac Medical History: Reports: Hx Hypertension Renal/ Medical History: Denies: Hx Peritoneal Dialysis Physical Exam - Vital signs Vitals: Temp Pulse Resp BP Pulse Ox 99.0 F 105 H 24 H 149/67 H 96 04/18/20 10:32 04/18/20 10:32 04/18/20 10:32 04/18/20 10:32 04/18/20 10:32 Course - Vital Signs Vital signs: Temp Pulse Resp BP Pulse Ox 99.0 F 105 H 24 H 149/67 H 96 04/18/20 10:32 04/18/20 10:32 04/18/20 10:32 04/18/20 10:32 04/18/20 10:32 Doctor's Discharge - Discharge Referrals: TAMEKA DAVIS FNP-C [Primary Care Provider] - Follow up as needed
[2020-04-18 12:30] LABS: HEMATOCRIT 28.8 % (37.9-51.0); HEMOGLOBIN 9.8 g/dL (13.5-17.0); MEAN CORPUSCULAR HEMOGLOBIN 31.5 pg (27.0-33.4); MEAN CORPUSCULAR HGB CONC 33.9 g/dL (32.0-36.0); MEAN CORPUSCULAR VOLUME 93 fl (80-97); PLATELET COUNT 374 10^3/uL (150-450); RED BLOOD COUNT 3.11 10^6/uL (4.35-5.55); RED CELL DISTRIBUTION WIDTH 15.8 % (11.5-14.0); WHITE BLOOD COUNT 8.1 10^3/uL (4.0-10.5)
[2020-04-18 12:49] LABS: ALBUMIN 3.5 g/dL (3.5-5.0); ALKALINE PHOSPHATASE 126 U/L (38-126); ANION GAP 6 (5-19); ASPARTATE AMINO TRANSFERASE 173 U/L (17-59); BILIRUBIN,DIRECT 0.4 mg/dL (0.0-0.4); BILIRUBIN,TOTAL 1.2 mg/dL (0.2-1.3); BLOOD UREA NITROGEN 20 mg/dL (7-20); CALCIUM 9.7 mg/dL (8.4-10.2); CARBON DIOXIDE 25 mmol/L (22-30); CHLORIDE 105 mmol/L (98-107); GLUCOSE 110 mg/dL (75-110); POTASSIUM 3.9 mmol/L (3.6-5.0); TOTAL PROTEIN 6.8 g/dL (6.3-8.2)
[2020-04-18 13:05] LABS: ABSOLUTE LYMPHOCYTES# (MANUAL) 0.1 10^3/uL (0.5-4.7); ABSOLUTE MONOCYTES # (MANUAL) 0.7 10^3/uL (0.1-1.4); BASOPHILS % (MANUAL) 0 % (0-2); EOSINOPHILS % (MANUAL) 3 % (0-6); LYMPHOCYTES % (MANUAL) 1 % (13-45); MONOCYTES % (MANUAL) 9 % (3-13); SEGMENTED NEUTROPHILS % (MAN) 87 % (42-78); TOTAL CELLS COUNTED 100
[2020-04-18 13:06] LABS: ANISOCYTOSIS SLIGHT; PLATELET CLUMPS PRESENT; PLATELET COMMENT ADEQUATE; POIKILOCYTOSIS SLIGHT; TARGET CELLS SLIGHT
--- NOTE | 2020-04-18 14:13 | ER Document Report ---
ED General - General Chief Complaint: Rib Pain Stated Complaint: RIGHT RIB PAIN Time Seen by Provider: 04/18/20 12:05 Primary Care Provider: TAMEKA DAVIS FNP-C [Primary Care Provider] - Follow up as needed TRAVEL OUTSIDE OF THE [place] IN LAST 30 DAYS: No - HPI Notes: Chief complaint: Right rib pain History of present illness: 69-year-old male followed by Dr. Cruz through the oncology clinic with a history of liver cancer with rib metastases and chronic persistent lancinating pain along the right costal margin anteriorly which is aggravated by movement. Patient says several prior ED visits here for same. He states that none of the pain medicines he has been given thus far have been particularly helpful. He was supposed to have an outpatient bone scan today. He says pain was unbearable and he presents to the ER instead requesting pain management before any further imaging is done. He denies fever chills. He denies cough. He denies dyspnea. He denies nausea or vomiting. He denies dysuria. - Related Data Allergies/Adverse Reactions: No Known Allergies Allergy (Unverified 09/18/18 21:53) Home Medications: levothyroxine, simvastatin, spiriva, plavix, lidocaine/morphine topical Past Medical History - General Information source: Patient, [facility] Records - Social History Smoking Status: Current Some Day Smoker Frequency of alcohol use: None Drug Abuse: None Lives with: Family Family History: Reviewed & Not Pertinent - Past Medical History Cardiac Medical History: Reports: Hx Hypertension Renal/ Medical History: Denies: Hx Peritoneal Dialysis Malignancy Medical History: Reports Hx Liver Cancer GI Medical History: Reports: Other - History of hepatitis C Review of Systems - Review of Systems Notes: Constitutional: Negative for fever. HENT: Negative for sore throat. Eyes: Negative for visual changes. Cardiovascular: Negative for chest pain. Respiratory: Negative for shortness of breath. Gastrointestinal: Negative for abdominal pain, vomiting or diarrhea. Genitourinary: Negative for dysuria. Musculoskeletal: As per HPI. Skin: Negative for rash. Neurological: Negative for headaches, weakness or numbness. 10 point ROS negative except as marked above and in HPI. Physical Exam - Vital signs Vitals: Temp Pulse Resp BP Pulse Ox 99.0 F 105 H 24 H 149/67 H 96 04/18/20 10:32 04/18/20 10:32 04/18/20 10:32 04/18/20 10:32 04/18/20 10:32 - Notes Notes: GENERAL: Chronically ill-appearing elderly man who appears moderately uncomfortable. Overall appearance is cachectic SKIN: Pale. Good turgor no rashes. HEAD: Bitemporal wasting. Atraumatic. EYES: PERRLA. EOMI. Conjunctivae and sclerae clear. EARS: CANALS AND TMS CLEAR. NOSE: CLEAR. MOUTH: Moist mucosa. Good dentition. No stridor or edema. No drooling. NECK: Supple. No masses or thyromegaly. No adenopathy. Carotids 2+ without bruits. No JVD. BACK: Symmetrical without tenderness. CHEST: Mild tenderness along right costal margin area of anterior axillary line with no palpable crepitus or rashes in this area. Respirations unlabored. Breath sounds clear and symmetrical. HEART: Regular rhythm. No murmur gallop or rub. ABDOMEN: Soft nontender without masses, organomegaly or rebound. Bowel sounds normally active. No bruits. GENITALIA: Deferred. EXTREMITIES: No edema. No calf tenderness. Cap refill less than 1.5 seconds. Dorsalis pedis and posterior tibial pulses 3+ and symmetrical. NEUROLOGICAL: GCS 15. Alert and oriented x3. Fluent speech. Cranial nerves II through XII intact. Sensorimotor and cerebellar normal. Normal tone. PSYCHIATRIC: Appropriate affect. Course - Re-evaluation Re-evalutation: 04/18/20 15:41 Patient's labs are at his previous baseline. I think the likelihood is that his discomfort is coming either from his primary neoplasm in the right lobe of the liver or from bony metastases. He was scheduled for a bone scan today but he did not keep the appointment due to his pain and unfortunately the tracer has and the study will not be obtainable this afternoon. Patient was given morphine here IV with good relief of his discomfort. Findings were discussed with Dr. Stein from oncology. He will call in a prescription for oral morphine to the patient's pharmacy. They will arrange for follow-up in the office next week and will try to reschedule the outpatient bone scan. - Vital Signs Vital signs: Temp Pulse Resp BP Pulse Ox 99.0 F 105 H 17 164/80 H 98 04/18/20 10:32 04/18/20 10:32 04/18/20 14:00 04/18/20 13:28 04/18/20 14:00 - Laboratory Result Diagrams: 04/18/20 12:20 04/18/20 12:20 Laboratory results interpreted by me: 04/18/20 04/18/20 12:20 12:20 RBC 3.11 L Hgb 9.8 L Hct 28.8 L RDW 15.8 H Seg Neuts % (Manual) 87 H Lymphocytes % (Manual) 1 L Abs Lymphs (Manual) 0.1 L Sodium 136.2 L Creatinine 2.35 H Est GFR ( Amer) 34 L Est GFR (MDRD) Non-Af 28 L AST 173 H ALT 77 H Discharge - Discharge Clinical Impression: Hepatocellular carcinoma, Right-sided chest wall pain Abdominal pain Qualifiers: Abdominal location: right upper quadrant Qualified Code(s): R10.11 - Right upper quadrant pain Condition: Stable Disposition: HOME, SELF-CARE Additional Instructions: Use morphine prescribed by your provider as needed for pain. You may return here as needed for new or worsening symptoms. Referrals: TAMEKA DAVIS FNP-C [Primary Care Provider] - Follow up as needed
--- NOTE | 2020-04-18 14:54 | RADIOLOGY REPORT (SQ) ---
EXAM DESCRIPTION: CT CHEST WITHOUT IMAGES COMPLETED DATE/TIME: 04/18/2020 2:20 pm REASON FOR STUDY: rib pain COMPARISON: None. TECHNIQUE: CT scan performed of the chest without intravenous contrast. Images reviewed with lung, soft tissue and bone windows. Reconstructed coronal and sagittal MPR images reviewed. All images st ored on PACS. All CT scanners at this facility use dose modulation, iterative reconstruction, and/or weight based d osing when appropriate to reduce radiation dose to as low as reasonably achievable (ALARA). [facility]: Dose Right [facility]: CareDose [facility]: Dose Right [facility]: Teradose 4D [facility]: [employer] RADIATION DOSE: CT Rad equipment meets quality standard of care and radiation dose reduction techniq ues were employed. CTDIvol: 4.8 mGy. DLP: 353 mGy-cm. mGy. LIMITATIONS: No technical limitations. FINDINGS: LUNGS AND PLEURA: Mild centrilobular emphysema in the upper lobes. No pulmonary infiltrat e. Minimal right pleural effusion with dependent atelectasis. HILAR AND MEDIASTINAL STRUCTURES: No identified masses or abnormal nodes. No obvious aneurysm. HEART AND VASCULAR STRUCTURES: No aneurysm. No pericardial effusion. Considerable coronary artery c alcifications. UPPER ABDOMEN: See separate report of the CT of the abdomen. THYROID AND OTHER SOFT TISSUES: No masses. No adenopathy. BONES: No significant finding. HARDWARE: None in the chest. OTHER: No other significant findings. IMPRESSION: Centrilobular emphysema. Minimal right pleural effusion with dependent atelectasis in t he right lower lobe. TECHNICAL DOCUMENTATION: JOB ID: [id number] Quality ID # [id number]: Final reports with documentation of one or more dose reduction techniques (e.g., Au tomated exposure control, adjustment of the mA and/or kV according to patient size, use of iterative reconstruction technique) 2010 [employer]- All Rights Reserved Reading location - IP/workstation name: [email or web address]
--- NOTE | 2020-04-18 15:04 | RADIOLOGY REPORT (SQ) ---
EXAM DESCRIPTION: CT ABD/PELVIS NO ORAL OR IV IMAGES COMPLETED DATE/TIME: 04/18/2020 2:21 pm REASON FOR STUDY: abdominal pain COMPARISON: MRI 01/21/2018 TECHNIQUE: CT scan of the abdomen and pelvis performed without intravenous or oral contrast. Images reviewed with lung, soft tissue, and bone windows. Reconstructed coronal and sagittal MPR images revi ewed. All images stored on PACS. All CT scanners at this facility use dose modulation, iterative reconstruction, and/or weight based d osing when appropriate to reduce radiation dose to as low as reasonably achievable (ALARA). [facility]: Dose Right [facility]: CareDose [facility]: Dose Right [facility]: Teradose 4D [facility]: [employer] RADIATION DOSE: mGy. LIMITATIONS: None. FINDINGS: LOWER CHEST: No significant findings. No nodules or infiltrates. NON-CONTRASTED LIVER, SPLEEN, ADRENALS: Large area of decreased attenuation in the right lobe of the liver that becomes heterogeneous inferiorly. Maximum diameter is 17 cm. Spleen and adrenal glands a re normal. PANCREAS: No masses. No peripancreatic inflammatory changes. GALLBLADDER: No identified stones by CT criteria. No inflammatory changes to suggest cholecystitis. RIGHT KIDNEY AND URETER: No suspicious masses. Assessment limited by lack of IV contrast. No signif icant calcifications. No hydronephrosis or hydroureter. LEFT KIDNEY AND URETER: No suspicious masses. Assessment limited by lack of IV contrast. There is s ome small vascular calcifications. No hydronephrosis or hydroureter. AORTA AND RETROPERITONEUM: No aneurysm. No retroperitoneal masses or adenopathy. BOWEL AND PERITONEAL CAVITY: No obvious masses or inflammatory changes. No free fluid. APPENDIX: Not identified. PELVIS, BLADDER, AND ABDOMINAL WALL:No abnormal masses. No free fluid. Bladder normal. BONES: No significant findings. OTHER: No other significant finding. IMPRESSION: There is a large area of decreased attenuation in the right lobe of the liver that becom es more heterogeneous inferiorly. Maximum diameter is 17 cm. Concerning for neoplasm. Recommend MR I with hepatic protocol. Consider biopsy. COMMENT: Quality ID # 436: Final reports with documentation of one or more dose reduction techniques (e.g., Automated exposure control, adjustment of the mA and/or kV according to patient size, use of iterative reconstruction technique) TECHNICAL DOCUMENTATION: JOB ID: [id number] 2010 [employer]- All Rights Reserved Reading location - IP/workstation name: [email or web address]
[2020-04-18 17:00] VITALS: BP 158/83
== END 2020-04-18 16:40 | disposition home or self-care (01) ==
LOC: ER 10:16
DX: C22.0 Liver cell carcinoma (principal); C79.51 Secondary malignant neoplasm of bone; R10.11 Right upper quadrant pain; R07.89 Other chest pain; I10 Essential (primary) hypertension; F17.200 Nicotine dependence, unspecified, uncomplicated; Z79.02 Long term (current) use of antithrombotics/antiplatelets; Z88.6 Allergy status to analgesic agent
CPT/HCPCS: 99284; 96361; 96374; 36415; 83690; 85025; 80053; 71250; 74176; J2270; J7030

== ENCOUNTER 2020-04-28 08:51 | Day surgery (SDC) | payer MEDICARE, MEDICAID ==
[2020-04-28 10:13] LABS: ABSOLUTE BASOPHILS # (AUTO) 0.1 10^3/uL (0.0-0.2); ABSOLUTE EOSINOPHILS # (AUTO) 0.3 10^3/uL (0.0-0.6); ABSOLUTE LYMPHOCYTES (AUTO) 0.5 10^3/uL (0.5-4.7); ABSOLUTE MONOCYTES (AUTO) 0.3 10^3/uL (0.1-1.4); ABSOLUTE NEUT (AUTO) 6.3 10^3/uL (1.7-8.2); BASOPHILS % (AUTO) 1.4 % (0-2); EOSINOPHILS % (AUTO) 3.8 % (0-6); HEMATOCRIT 28.5 % (37.9-51.0); HEMOGLOBIN 9.5 g/dL (13.5-17.0); LYMPHOCYTES % (AUTO) 6.7 % (13-45); MEAN CORPUSCULAR HGB CONC 33.5 g/dL (32.0-36.0); MEAN CORPUSCULAR VOLUME 93 fl (80-97); MONOCYTES % (AUTO) 4.2 % (3-13); PLATELET COUNT 305 10^3/uL (150-450); RED BLOOD COUNT 3.07 10^6/uL (4.35-5.55); SEGMENTED NEUTROPHILS % (AUTO) 83.9 % (42-78); TOTAL CELLS COUNTED % (AUTO) 100 %; WHITE BLOOD COUNT 7.6 10^3/uL (4.0-10.5)
[2020-04-28 10:19] LABS: PARTIAL THROMBOPLASTIN TIME 34.7 SEC (23.5-35.8); PROTHROMBIN TIME 15.2 SEC (11.4-15.4)
[2020-04-28 10:32] LABS: BLOOD UREA NITROGEN 13 mg/dL (7-20)
[2020-04-28] MEDS ORDERED: MIDAZOLAM 2 MG/2 ML INJ ONE (11:09)
[2020-04-28] MEDS ORDERED: FENTANYL CITRATE INJ/PF 100 MCG/2 ML AMPUL ONE (11:10)
--- NOTE | 2020-04-28 12:41 | RADIOLOGY REPORT (SQ) ---
EXAM DESCRIPTION: CT BIOPSY LIVER; CT NEEDLE PLACEMENT IMAGES COMPLETED DATE/TIME: 04/28/2020 12:01 pm REASON FOR STUDY: LIVER CELL CARCINOMA; LIVER CELL CARCINOMA, LIVER BIOPSY C22.0 LIVER CELL CARCINO MA COMPARISON: 04/18/2020 TECHNIQUE: After obtaining informed consent and explaining the risks and benefits of conscious sedat ion,the patient agreed to the procedure. The patient was brought to the CT suite and was placed supin e on the CT gurney. The patient was prepped and draped in the usual sterile fashion. Axial images we re obtained for targeting of thehypodense right hepatic lobe mass. An appropriate access site was tye ected. IV conscious sedation was administered and physician direction by the registered nurse using 1 milligrams of Versed and 50 micrograms of fentanyl. Physiologic monitoring was provided before, duri ng, and after sedation. The total sedation time was 30 minutes. Documentation face to face time, the performing proceduralist, spent monitoring the patient: [address] of the liver was performed to localize an approach for the right hepatic lobe biops y. A percutaneous site was marked. Time out was performed. After skin prep and local lidocaine for skin and deep tissue anesthesia, a 18 gauge Temno coaxial bi opsy needle system was used to obtain several cores of tissue from the 3 liver. These were submitted to the lab in formalin. The tract was embolized with Gel-Foam. No immediate postprocedure complic ations. Total of 3.[address] fluoro was used. 3 CT Fluoroscopic images were obtained and saved to PACS. All CT scanners at this facility use dose modulation, iterative reconstruction, and/or weight based d osing when appropriate to reduce radiation dose to as low as reasonably achievable (ALARA). [facility]: Dose Right [facility]: CareDose [facility]: Dose Right [facility]: Teradose 4D [facility]: [employer] RADIATION DOSE: CT Rad equipment meets quality standard of care and radiation dose reduction techniq ues were employed. CTDIvol: 6.7 - 12.3 mGy. DLP: 180 mGy-cm. mGy. LIMITATIONS: None. FINDINGS: CT guided liver biopsy as detailed above. IMPRESSION: CT GUIDED HYPODENSE HEPATIC LESION BIOPSY PERFORMED ABOVE. PATHOLOGY PENDING. NO I MMEDIATE COMPLICATIONS. COMMENT: Patient medication list reviewed:Yes- Quality ID# [id number]:Eligible professional attests to docu menting in the medical record they obtained, updated, or reviewed the patient's current medications.. Quality ID 145: Final reports for procedures using fluoroscopy that document radiation exposure loi jodie, or exposure time and number of fluorographic images (if radiation exposure indices are not avail able) TECHNICAL DOCUMENTATION: JOB ID: [id number] Quality ID # 436: Final reports with documentation of one or more dose reduction techniques (e.g., A utomated exposure control, adjustment of the mA and/or kV according to patient size, use of iterative reconstruction technique) 2010 [employer]- All Rights Reserved Reading location - IP/workstation name: [email or web address]
[2020-04-28 16:16] VITALS: BP 157/79
== END 2020-04-28 14:25 | disposition home or self-care (01) ==
LOC: RAD 08:51
PROVIDERS: ATTEND Internal Medicine Hematology & Oncology
DX: C22.0 Liver cell carcinoma (principal); Z79.899 Other long term (current) drug therapy; J44.9 Chronic obstructive pulmonary disease, unspecified; I25.10 Atherosclerotic heart disease of native coronary artery without angina pectoris; E78.5 Hyperlipidemia, unspecified; I10 Essential (primary) hypertension; E03.9 Hypothyroidism, unspecified; Z79.02 Long term (current) use of antithrombotics/antiplatelets; G40.909 Epilepsy, unspecified, not intractable, without status epilepticus; I73.9 Peripheral vascular disease, unspecified
CPT/HCPCS: 36415; 84520; 82565; 85025; 85610; 85730; 88305 ×2; 77012; 47000; J2250; J3010; 88313; 88341; 88342

== ENCOUNTER → 2020-06-10 | Outpatient (CLI) | payer MEDICARE, MEDICAID ==
--- NOTE | 2020-06-11 11:16 | RADIOLOGY REPORT (SQ) ---
EXAM DESCRIPTION: MRI LUMBAR SPINE COMBO IMAGES COMPLETED DATE/TIME: 06/10/2020 2:11 pm REASON FOR STUDY: LOW BACK PAIN (M54.5), LIVER CELL CARCINOMA (C22.0) M54.5 LOW BACK PAIN C22.0 LI BOB CELL CARCINOMA COMPARISON: 04/18/2020 TECHNIQUE: Sagittal and Axial imaging includes T1, T1 post gadolinium, T2, STIR and gradient echo se quences. Coronal T2/HASTE imaging. CONTRAST TYPE AND DOSE: 10 mL Dotarem. RENAL FUNCTION: Not indicated. ACR Type II contrast agent associated with few, if any, unconfounded cases of NSF LIMITATIONS: None. FINDINGS: VISUALIZED UPPER ABDOMEN: LIMITED EVALUATION AGAIN DEMONSTRATING A MARKEDLY ABNORMAL APPEA CHRIS OF THE LIVER. SEGMENTATION: No transitional anatomy. The lowest well-developed disc space is labeled L5-S1. ALIGNMENT: Anatomic. VERTEBRAE: Mild L2 compression deformity. BONE MARROW: Enhancing T1/T2 hypointense signal is seen within the rightward aspect of the L4 vertebr al body extending into the pedicle with apparent extraosseous extension into the right neural foramen . Similar signal is seen within the sacrum demonstrating extraosseous extension both anteriorly and posteriorly to include into the central canal ; multiple additional small foci are seen within the il iac wings DISC SIGNAL: Intervertebral disc desiccation and loss of height are seen at the L1/2, L4/5, and L5/S1 levels. POSTERIOR ELEMENTS: Generally intact. No pars defect evident. HARDWARE: None in the spine. CORD AND CONUS: Normal in size and signal intensity. Conus at the appropriate level. SOFT TISSUES: No aortic aneurysm seen. No bulky retroperitoneal adenopathy or mass. No paraspinal mas s or fluid. L1-L2: No significant spinal stenosis or exit foraminal stenosis. L2-L3: No significant spinal stenosis or exit foraminal stenosis. L3-L4: No significant spinal stenosis or exit foraminal stenosis. L4-L5: Above described enhancing mass demonstrates extraosseous extension into the right foraminal zo ne resulting in severe right neural foraminal narrowing. Broad-based posterior disc bulge with focal annular fissure in the setting of facet arthropathy results in mild left neural foraminal stenosis. The central canal remains patent. L5-S1: Extraosseous extension of a sacral mass results in critical stenosis of the central canal at t his level. Moderate right, severe left neural foraminal stenosis. LOWER THORACIC: Incompletely imaged. No stenosis seen. SACRUM: As above. ENHANCEMENT: No abnormal enhancement. OTHER: No other significant findings. IMPRESSION: Enhancing right sacral mass with extraosseous extension, notably including the central c anal which demonstrates critical stenosis. Similar-appearing lesion within the rightward aspect of t he L4 vertebral body demonstrates extraosseous extension into the foraminal zone resulting in severe right neural foraminal narrowing. Multiple small masses are seen within the bilateral iliac wings. These findings are consistent with metastatic disease of unknown primary. Background of relatively m ild multilevel spondylotic changes. TECHNICAL DOCUMENTATION: JOB ID: [id number] 2010 [employer]- All Rights Reserved Reading location - IP/workstation name: [email or web address]
== END ==
LOC: RAD 12:56
PROVIDERS: ATTEND Internal Medicine Hematology & Oncology
DX: M54.5 Low back pain (principal); C22.0 Liver cell carcinoma
CPT/HCPCS: 82565; 72158; A9576

== ENCOUNTER → 2020-07-08 | Outpatient (CLI) | payer MEDICARE, MEDICAID ==
--- NOTE | 2020-07-08 15:27 | RADIOLOGY REPORT (SQ) ---
EXAM DESCRIPTION: PET CT SKULL/THIGH IMAGES COMPLETED DATE/TIME: 07/08/2020 1:17 pm REASON FOR STUDY: C22.0 LIVER CELL CARCINOMA C22.0 LIVER CELL CARCINOMA COMPARISON: MRI lumbar spine 06/10/2020. CT chest abdomen pelvis 04/18/2020. RADIONUCLIDE AND DOSE: 10.1 mCi F18 FDG The route of agent administration: Intravenous FASTING BLOOD SUGAR: 78 mg/dl CONTRAST TYPE AND DOSE: No CT contrast given. TECHNIQUE: Blood glucose level was verified. Above dose of FDG was injected intravenously. 2-D seg mented attenuation correction images were obtained from the base of the skull to the midthighs. Nonc ontrast CT images were obtained for attenuation correction and fusion with emission images. CT image s were performed without oral or intravenous contrast and are not sensitive for parenchymal lesions. A series of overlapping emission PET images were obtained. Images reviewed and manipulated at [facility] work station by the radiologist. Images stored on PACS. LIMITATIONS: None. FINDINGS: HEAD AND NECK: No areas of abnormal metabolic activity in the soft tissues of the head and neck. CHEST: No areas of abnormal metabolic activity in the chest. ABDOMEN AND PELVIS: No areas of abnormal metabolic activity in the abdomen or pelvis. Expected physi ologic activity is present in the genitourinary system and bowel. PROXIMAL LOWER EXTREMITIES: No areas of abnormal metabolic activity in the soft tissues of the lower extremities. BONES: Low level uptake 2.3 SUV associated with previously described lytic lesion in the right sacrum . ADDITIONAL CT FINDINGS: No additional significant findings on the noncontrast CT images. OTHER: Blood pool 1.4 SUV. Liver background 2.3 SUV. IMPRESSION: Bone metastasis. No other significant uptake. TECHNICAL DOCUMENTATION: JOB ID: [id number] 2010 [employer]- All Rights Reserved Reading location - IP/workstation name: [email or web address]
== END ==
LOC: RAD 08:38
PROVIDERS: ATTEND Internal Medicine Hematology & Oncology
DX: C22.0 Liver cell carcinoma (principal); C79.51 Secondary malignant neoplasm of bone
CPT/HCPCS: 78815; A9552

== ENCOUNTER → 2020-09-30 | Outpatient (CLI) | payer MEDICARE, MEDICAID ==
--- NOTE | 2020-09-30 17:16 | RADIOLOGY REPORT (SQ) ---
EXAM DESCRIPTION: PET CT SKULL/THIGH IMAGES COMPLETED DATE/TIME: 09/30/2020 9:32 am REASON FOR STUDY: C22.0 LIVER CELL CARCINOMA C22.0 LIVER CELL CARCINOMA. Metastatic hepatocellular carcinoma with bone metastases. Hepatocellular carcinoma diagnosed in 2014, initially treated with surgery an [facility] with recurrence in 2017. Immunotherapy. Progression of disease on CT 04/12/2020. Rep eat liver biopsy demonstrated moderately differentiated hepatocellular carcinoma. Bone metastases on biopsy in 2018. COPD. Increasing left leg pain. COMPARISON: 07/08/2020. CT abdomen and pelvis, 04/18/2020. MRI abdomen, 01/21/2018. MRI lumbar spine , 06/10/2020. RADIONUCLIDE AND DOSE: 10 mCi F18 FDG The route of agent administration: Intravenous FASTING BLOOD SUGAR: 80 mg/dl CONTRAST TYPE AND DOSE: No CT contrast given. TECHNIQUE: Blood glucose level was verified. Above dose of FDG was injected intravenously. 2-D seg mented attenuation correction images were obtained from the base of the skull to the midthighs. Nonc ontrast CT images were obtained for attenuation correction and fusion with emission images. CT image s were performed without oral or intravenous contrast and are not sensitive for parenchymal lesions. A series of overlapping emission PET images were obtained. Images [facility] by the radiologist. Images stored on PACS. LIMITATIONS: None. FINDINGS: HEAD AND NECK: No areas of abnormal metabolic activity in the soft tissues of the head and neck. CHEST: There is increasing size of a right posterior pleural based mass with mild hypermetabolic acti vity associated and adjacent sclerosis of the right posterior 9th rib, with soft tissue mass now gretchen uring 4.1 x 2.5 cm. This likely represents a rib metastasis with associated soft tissue component ex tending into the pleural space. This has low-level hypermetabolic activity with SUV 2.4. No suspici ous pulmonary nodules or other abnormal metabolic activity in the mediastinum or chest. ABDOMEN AND PELVIS: Liver is enlarged with heterogeneous hypermetabolic activity and areas of photope soraida, consistent with prior RFA. Background hepatic activity SUV 3.2. No focal hepatic activity. No rmal physiologic activity in the kidneys and urinary bladder. Normal physiologic activity in the bow el. No hypermetabolic lymph nodes. PROXIMAL LOWER EXTREMITIES: No areas of abnormal metabolic activity in the soft tissues of the lower extremities. BONES: There is hypermetabolic activity with subtle sclerosis at the left acetabulum SUV 2.5, increas ed from prior. No cortical disruption. Hypermetabolic intramedullary lesion with cortical disruptio n at the right sacrum encroaching on the sacral foramen, similar in appearance to previous examinatio n, with mild hypermetabolic activity SUV 2.8. Other scattered areas of sclerosis with associated mil d hypermetabolic activity consistent metastases in the right iliac bone, multiple vertebral bodies, s ternum, and right posterior 9th rib[address] FINDINGS: No additional significant findings on the noncontrast CT images. OTHER: No other significant findings. IMPRESSION: 1. Osseous metastases, with increasing soft tissue component of the right posterior chest wall associ ated within the osseous metastasis at the right posterior 9th rib. 2. There is increasing hypermetabolic activity in the left acetabulum which may contribute to the pat ient's left hip pain. 3. Heterogeneous enlarged liver with areas of photopenia consistent with prior RFA. No evidence of h epatic recurrence. TECHNICAL DOCUMENTATION: JOB ID: [id number] 2010 [employer]- All Rights Reserved Reading location - IP/workstation name: [email or web address]
== END ==
LOC: RAD 07:37
PROVIDERS: ATTEND Internal Medicine Hematology & Oncology
DX: C22.0 Liver cell carcinoma (principal)
CPT/HCPCS: 78815; A9552